=== PATIENT | female | born 1980 | race American Indian/Alaskan Native ===

== ENCOUNTER 2021-07-09 13:18 | Emergency (ER) | payer SELFPAY ==
--- NOTE | 2021-07-09 14:53 | Emergency Department Report ---
ED Animal Bite HPI - General Chief Complaint: Animal Bite Stated Complaint: SWOLLEN SPIDER BITE Time Seen by Provider: 07/09/21 14:35 Source: patient Mode of arrival: Ambulatory Limitations: No Limitations - History of Present Illness Initial Comments: 40-year-old female Monica emerged department complaining of pain to the neck/chin region due to her being bitten by a spider. Since then been she reported some swelling and pain to the lower chin area which is worse with palpation opening closing mouth. Vague fever sensations but no shortness of breath, no odynophagia no dysphagia no dysphagia. No drooling or voice change. She reports no no redness or wound discharge to her knowledge. Location: neck Animal: other Mechanism: bite Pain Description: dull Associated Symptoms: none - Related Data Patient Tetanus UTD: No Previous Rx's Medication Instructions Recorded Last Taken Type Ketorolac [Toradol] 10 mg PO Q6H PRN #14 07/09/21 Unknown Rx Sulfamethoxazole/Trimethoprim 1 each PO BID #20 07/09/21 Unknown Rx [Bactrim DS TAB] ED Review of Systems ROS: Stated complaint: SWOLLEN SPIDER BITE Other details as noted in HPI Comment: All other systems reviewed and negative ED Past Medical Hx - Medications Home Medications: Home Medications Medication Instructions Recorded Confirmed Last Taken Type Ketorolac [Toradol] 10 mg PO Q6H PRN #14 07/09/21 Unknown Rx Sulfamethoxazole/Trimethoprim 1 each PO BID #20 07/09/21 Unknown Rx [Bactrim DS TAB] ED Physical Exam - General Limitations: No Limitations General appearance: alert, in no apparent distress - Head Head exam: Present: atraumatic, normocephalic - Eye Eye exam: Present: normal appearance, PERRL, EOMI Pupils: Present: normal accommodation - ENT ENT exam: Present: mucous membranes moist - Neck Neck exam: Present: normal inspection, tenderness, full ROM - Expanded Neck Exam Expanded 1 - Patient is swelling to the submental region. Tenderness is present. - Respiratory Respiratory exam: Present: normal lung sounds bilaterally. Absent: respiratory distress, wheezes, rales, rhonchi, chest wall tenderness, accessory muscle use, decreased breath sounds - Cardiovascular Cardiovascular Exam: Present: regular rate, normal rhythm. Absent: systolic murmur, diastolic murmur, rubs, gallop - GI/Abdominal GI/Abdominal exam: Present: soft, normal bowel sounds - Extremities Exam Extremities exam: Present: normal inspection - Back Exam Back exam: Present: normal inspection - Neurological Exam Neurological exam: Present: alert, oriented X3 - Psychiatric Psychiatric exam: Present: normal affect, normal mood - Skin Skin exam: Present: warm, dry. Absent: rash ED Course Vital Signs 07/09/21 13:43 Temperature 98.4 F Pulse Rate 81 Respiratory 18 Rate Blood Pressure 195/102 [Left] O2 Sat by Pulse 100 Oximetry Critical care attestation.: If time is entered above; I have spent that time in minutes in the direct care of this critically ill patient, excluding procedure time. ED Disposition Clinical Impression: Spider bite Disposition: HOME / SELF CARE / HOMELESS Is pt being admited?: No Does the pt Need Aspirin: No Condition: Stable Instructions: Spider Bite, [id number], Spider Bite Prescriptions: Sulfamethoxazole/Trimethoprim [Bactrim DS TAB] 1 each PO BID #20 Ketorolac [Toradol] 10 mg PO Q6H PRN #14 PRN Reason: Pain Referrals: [facility] [Provider Group] - 3-5 Days
[2021-07-09 15:59] VITALS: BP 138/80
== END 2021-07-09 15:59 | disposition home or self-care (01) ==
LOC: ED 13:18
DX: S10.96XA Insect bite of unspecified part of neck, initial encounter (principal); W57.XXXA Bitten or stung by nonvenomous insect and other nonvenomous arthropods, initial encounter; Y93.89 Activity, other specified; Y92.89 Other specified places as the place of occurrence of the external cause; Y99.8 Other external cause status
CPT/HCPCS: 99282